=== PATIENT | female | born 1965 | race Caucasian/White ===

== ENCOUNTER 2022-07-20 10:21 | Outpatient (REF) | payer BC, SELFPAY ==
[2022-07-20 13:37] LABS: Bilirubin Negative (Negative); Blood Trace-lysed (Negative); Clarity Clear (Clear); Glucose Negative (Negative); Ketones Negative (Negative); Leukocyte Esterase Trace (Negative); Nitrite Negative (Negative); Specific Gravity 1.025 (1.005-1.025); Urobilinogen 0.2 EU/dL (Up TO 0.2); pH 6.5 (5-8)
[2022-07-20 13:56] LABS: Bacteria Rare HPF (Negative); C & S Indicated? Yes; Casts Negative LPF (Negative); Crystals Negative HPF (Negative); Epithelial Cells Few HPF (Negative); Mucus Negative (Negative); Other Cells Rare Renal (Negative); RBC 0-2 HPF (0-2); WBC 0-2 HPF (0-5)
== END 2022-07-20 10:22 | disposition home or self-care (01) ==
LOC: LBN 10:21
PROVIDERS: Visit Provider Nurse Practitioner Family
DX: R39.9 Unspecified symptoms and signs involving the genitourinary system (principal)
CPT/HCPCS: 81003; 81015; 87086

== ENCOUNTER 2022-07-20 12:29 | Outpatient (CLI) | payer BC, SELFPAY ==
--- NOTE | 2022-07-20 09:45 | DI.RAD_ITS ---
Exam(s) XR LUMBAR SPINE COMPLETE EXAM: XR LUMBAR SPINE COMPLETE CLINICAL HISTORY: LBP, M54.50, evaluate pathology. TECHNIQUE: 2D digital imaging was performed. COMPARISON: No exams were available for comparison FINDINGS: Five views: There is no evidence of fracture or listhesis. No pars defects. There is some disc space narrowing at L2-3 and L3-4 level. Also disc space narrowing at L1-2 level. Mild scoliosis noted. There is so me facet arthropathy at L4-5 level, more so on the right side. Sacroiliac joints appear unremarkable . Bone density normal. No osseous lesions. IMPRESSION: Multilevel disc space narrowing (moderate). Some facet arthropathy at L4-5 level. Wet read DATA REPOSITORY: RADIATION DOSE DELIVERED:
== END 2022-07-20 12:49 ==
LOC: DI 12:32
PROVIDERS: Visit Provider Nurse Practitioner Family
DX: M54.50 Low back pain, unspecified (principal); M47.816 Spondylosis without myelopathy or radiculopathy, lumbar region
CPT/HCPCS: 72110

== ENCOUNTER 2023-08-24 19:00 | Outpatient (REF) | payer SELFPAY ==
[2023-08-27 11:31] LABS: Measles IgG Antibody Negative (See Note); Mumps Antibody IgG Positive (See Note)
[2023-08-27 11:33] LABS: Rubella IgG Ab (UVM) Negative (See Note)
== END 2023-08-24 19:01 | disposition home or self-care (01) ==
LOC: NCHCN 19:00
PROVIDERS: Referring Provider Nurse Practitioner Acute Care; Visit Provider Nurse Practitioner Acute Care
DX: Z00.00 Encounter for general adult medical examination without abnormal findings (principal)
CPT/HCPCS: 86735; 86762; 86765